=== PATIENT | male | born 2000 | race African-American/Black ===

== ENCOUNTER 2023-02-26 09:45 | Emergency (ER) | payer BC ==
[2023-02-26] MEDS ORDERED: MORPHINE 4 MG/ML SYR ONE (10:24)
[2023-02-26] MEDS ORDERED: ONDANSETRON 4 MG/2 ML VIAL ONE (10:25)
[2023-02-26] MEDS ORDERED: NA CHLORIDE 0.9% 500 ML ONE (10:26)
[2023-02-26] MEDS ORDERED: propofoL 200 MG/20 ML VIAL IV ONE (10:26)
--- NOTE | 2023-02-26 10:58 | RAD REPORT ---
EXAM DESCRIPTION: RAD - Shoulder Left 2 View - 02/26/2023 10:40 am CLINICAL HISTORY: Left shoulder pain FINDINGS: Anterior humeral dislocation with Hill-Sachs deformity
--- NOTE | 2023-02-26 11:51 | EDPHYS ---
Physician Documentation [facility] Name: Abner Franco Age: 23 yrs Sex: Male : 2000 Arrival Date: 02/26/2023 Time: 09:45 Bed 15 Private MD: ED Physician Colin Thibodeaux HPI: 02/26 10:15 This 23 yrs old Black Male presents to ER via Law Enforcement with complaints of rn shoulder dislocation. 10:15 The patient or guardian complains of decreased range of motion, pain. left shoulder. rn Onset: The symptoms/episode began/occurred just prior to arrival. Modifying factors: the symptoms are alleviated by nothing. The symptoms are aggravated by movement. Severity of symptoms: At their worst the symptoms were moderate, in the emergency department the symptoms are unchanged. The patient has experienced similar episodes in the past. Pt reports working out, thinks shoulder is dislocated, has happened 3 times before. No other injury. No direct trauma. No weakness/numbness. Historical: - Allergies: 09:50 No Known Allergies; ko1 - Immunization history:: Adult Immunizations unknown. - Social history:: Smoking status: Patient reports the use of cigarette tobacco products, denies chronic smoking, but will smoke occasionally. - Family history:: not pertinent. - Hospitalizations: : No recent hospitalization is reported. ROS: 10:15 Constitutional: Negative for fever, chills, and weight loss, MS/Extremity: + left rn shoulder deformity and pain Exam: 10:15 Constitutional: This is a well developed, well nourished patient who is awake, alert, rn and in no acute distress. MS/ Extremity: Pulses equal, no cyanosis. NV intact. + empty left glenoid with painful ROM, held in passive flexion. Vital Signs: 09:48 BP 125 / 72; Pulse 65; Resp 18; Temp 98; Pulse Ox 100% ; Weight 63.5 kg; Height 5 ft. 8 ko1 in. ; 10:00 BP 113 / 79; Pulse 69; Resp 16; Pulse Ox 99% ; ko1 11:00 BP 123 / 79; Pulse 70; Resp 18; Pulse Ox 99% ; ko1 11:15 BP 125 / 72; Pulse 63; Resp 16; Pulse Ox 100% on R/A; cm10 11:30 BP 123 / 74; Pulse 61; Resp 16; Pulse Ox 100% on R/A; cm10 11:45 BP 127 / 80; Pulse 68; Resp 16; Pulse Ox 96% on R/A; cm10 12:05 BP 129 / 77; Pulse 64; Resp 16; Pulse Ox 100% on R/A; cm10 09:48 Body Mass Index 21.29 (63.50 kg, 172.72 cm) ko1 Procedures: 11:17 Reduction: of the left shoulder, using traction, manipulation, Immobilized with rn shoulder immobilizer. Patient tolerated well. Post reduction film - reveals improved alignment. Moderate sedation: Pre-procedure assessment: the patient has been NPO 3 hour(s) prior to arrival, ASA physical classification: I - healthy, no underlying organic disease, Airway assessment: able to hyperextend neck, able to maintain airway, can open mouth without difficulty, Monitoring during procedure: phototypesetting equipment monitor, continuous pulse oximetry, nurse at bedside at all times, Medications employed: propofol, Post-procedure assessment: the patient is mildly sedated, Respiratory status: even and unlabored, a reversal agent was not used. MDM: 10:00 Patient medically screened. rn 11:50 Differential diagnosis: Anterior dislocation with fracture, Anterior dislocation rn without fracture. Data reviewed: vital signs, nurses notes, radiologic studies, plain films, and as a result, I will discharge patient. Counseling: I had a detailed discussion with the patient and/or guardian regarding: the historical points, exam findings, and any diagnostic results supporting the discharge/admit diagnosis, radiology results, the need for outpatient follow up, to return to the emergency department if symptoms worsen or persist or if there are any questions or concerns that arise at home. Response to treatment: the patient's symptoms have markedly improved after treatment, and as a result, I will discharge patient. Special discussion: I discussed with the patient/guardian in detail that at this point there is no indication for admission to the hospital. It is understood, however, that if the symptoms persist or worsen the patient needs to return immediately for re-evaluation. 02/26 10:12 Order name: XRAY Shoulder LEFT 2 view; Complete Time: 11:03 rn 02/26 11:17 Order name: XRAY Shoulder (1 View); Complete Time: 12:08 rn 02/26 10:12 Order name: IV Start; Complete Time: 10:47 rn 02/26 10:12 Order name: NPO; Complete Time: 10:13 rn 02/26 10:12 Order name: Moderate Sedation; Complete Time: 10:17 rn Administered Medications: 10:47 Drug: Ondansetron IVP 4 mg Route: IVP; Site: right antecubital; ko1 10:55 Drug: morphine IVP or IV 4 mg Route: IVP; Infused Over: 4 mins; Site: right antecubital;ko1 11:24 Drug: Propofol IVP 100 mg {Note: By Dr Thibodeaux.} Route: IVP; Site: right antecubital; ko1 Disposition Summary: 02/26/23 11:51 Discharge Ordered Location: Home rn Problem: new rn Symptoms: have improved rn Condition: Stable rn Diagnosis - Recurrent dislocation, left shoulder rn Followup: rn - With: Private Physician - When: As needed - Reason: Recheck today's complaints, Re-evaluation by your physician Discharge Instructions: - Discharge Summary Sheet rn - Shoulder Dislocation rn - Recurrent Shoulder Laxity and Instability rn Forms: - Medication Reconciliation Form rn - Thank You Letter rn - Antibiotic international logistics coordinator - Prescription Opioid Use rn - Patient Portal Instructions rn Signatures: Dispatcher [employer] EDColin Bacon MD MD rn Oliver, Kathy, RN RN ko1 Corrections: (The following items were deleted from the chart) 10:17 10:15 Constitutional: This is a well developed, well nourished patient who is awake, rn alert, and in no acute distress. MS/ Extremity: Pulses equal, no cyanosis. + empty left glenoid with painful ROM, held in passive flexion. rn
--- NOTE | 2023-02-26 11:51 | ER ---
Nurse's Notes [facility] Name: Abner Franco Age: 23 yrs Sex: Male : 2000 Arrival Date: 02/26/2023 Time: 09:45 Bed 15 Private MD: Diagnosis: Recurrent dislocation, left shoulder Presentation: 02/26 09:48 Chief complaint: Patient states: left shoulder popped out of place, it has happened ko1 before. No injury, just spontaneously popped out. Coronavirus screen: At this time, the client does not indicate any symptoms associated with coronavirus-19. Ebola Screen: No symptoms or risks identified at this time. Initial Sepsis Screen: Does the patient meet any 2 criteria? No. Patient's initial sepsis screen is negative. Does the patient have a suspected source of infection? No. Patient's initial sepsis screen is negative. Risk Assessment: Do you want to hurt yourself or someone else? Patient reports no desire to harm self or others. Onset of symptoms was February 26, 2023. 09:48 Method Of Arrival: Law Enforcement: [place] [employer] ko1 09:48 Acuity: MORENITA 3 ko1 Triage Assessment: 09:50 General: Appears in no apparent distress. uncomfortable, Behavior is calm, cooperative, ko1 appropriate for age. Pain: Complains of pain in anterior aspect of left shoulder and posterior aspect of left shoulder. Historical: - Allergies: 09:50 No Known Allergies; ko1 - Immunization history:: Adult Immunizations unknown. - Social history:: Smoking status: Patient reports the use of cigarette tobacco products, denies chronic smoking, but will smoke occasionally. - Family history:: not pertinent. - Hospitalizations: : No recent hospitalization is reported. Screenin:00 [facility] ED Fall Risk Assessment (Adult) History of falling in the last 3 months, ko1 including since admission No falls in past 3 months (0 pts) Confusion or Disorientation No (0 pts) Intoxicated or Sedated No (0 pts) Impaired Gait No (0 pts) Mobility Assist Device Used No (0 pt) Altered Elimination No (0 pt) Score/Fall Risk Level 0 - 2 = Low Risk Oriented to surroundings, Maintained a safe environment, Educated pt \T\ family on fall prevention, incl call for assistance when getting out of bed, Assessed \T\ reinforced patient's understanding of fall precautions, Provided non-skid footwear, Hourly rounding (assess needs \T\ fall precautionary measures) done, Used ambulatory aids as needed (educated on \T\ assisted with), Used gait belt as appropriate. Abuse screen: Denies threats or abuse. Denies injuries from another. Nutritional screening: No deficits noted. Tuberculosis screening: No symptoms or risk factors identified. Assessment: 10:00 General: Appears in no apparent distress. uncomfortable, Behavior is calm, cooperative, ko1 appropriate for age. Pain: Complains of pain in left shoulder and posterior aspect of left shoulder and anterior aspect of left shoulder. Neuro: No deficits noted. Cardiovascular: No deficits noted. Respiratory: No deficits noted. GI: No deficits noted. : No deficits noted. EENT: No deficits noted. Derm: No deficits noted. Musculoskeletal: Reports pain in posterior aspect of left shoulder and anterior aspect of left shoulder. 12:25 Reassessment: Patient is alert, oriented x 3, equal unlabored respirations, skin cm10 warm/dry/pink. Patient denies pain at this time. Patient states feeling better. Patient states symptoms have improved. Vital Signs: 09:48 BP 125 / 72; Pulse 65; Resp 18; Temp 98; Pulse Ox 100% ; Weight 63.5 kg; Height 5 ft. 8 ko1 in. ; 10:00 BP 113 / 79; Pulse 69; Resp 16; Pulse Ox 99% ; ko1 11:00 BP 123 / 79; Pulse 70; Resp 18; Pulse Ox 99% ; ko1 11:15 BP 125 / 72; Pulse 63; Resp 16; Pulse Ox 100% on R/A; cm10 11:30 BP 123 / 74; Pulse 61; Resp 16; Pulse Ox 100% on R/A; cm10 11:45 BP 127 / 80; Pulse 68; Resp 16; Pulse Ox 96% on R/A; cm10 12:05 BP 129 / 77; Pulse 64; Resp 16; Pulse Ox 100% on R/A; cm10 09:48 Body Mass Index 21.29 (63.50 kg, 172.72 cm) ko1 ED Course: 09:47 Patient arrived in ED. ko1 09:47 Belinda Oconnor, RN is Primary Nurse. ko1 09:50 Triage completed. ko1 09:50 Arm band placed on right wrist. Patient placed in an exam room, on a stretcher, on ko1 pulse oximetry. 10:00 Colin Thibodeaux MD is Attending Physician. rn 10:00 Patient has correct armband on for positive identification. Bed in low position. Call ko1 light in reach. Side rails up X 1. Provided Education on: NA. 10:00 Client placed on continuous cardiac and pulse oximetry monitoring. NIBP monitoring ko1 applied. panel monitor on. 10:42 XRAY Shoulder LEFT 2 view In Process Unspecified. EDMS 10:48 Inserted saline lock: 22 gauge in right upper arm, using aseptic technique. em1 11:56 XRAY Shoulder (1 View) In Process Unspecified. EDMS 12:24 Provided Education on: Conscious Sedation. cm10 12:24 Assist provider with reduction of left shoulder using manipulation, Set up for cm10 procedure. Performed by Colin Thibodeaux MD Immobilized with sling, Patient tolerated well. See conscious sedation paper chart. IV discontinued, intact, bleeding controlled, No redness/swelling at site. Pressure dressing applied. 12:26 Sling applied to left arm. cm10 Administered Medications: 10:47 Drug: Ondansetron IVP 4 mg Route: IVP; Site: right antecubital; ko1 10:55 Drug: morphine IVP or IV 4 mg Route: IVP; Infused Over: 4 mins; Site: right antecubital;ko1 11:24 Drug: Propofol IVP 100 mg {Note: By Dr Thibodeaux.} Route: IVP; Site: right antecubital; ko1 Medication: 12:25 VIS not applicable for this client. cm10 Outcome: 11:51 Discharge ordered by . rn 12:25 Discharged to home ambulatory, accompanied by guards cm10 12:25 Condition: good 12:25 Discharge instructions given to patient, Instructed on discharge instructions, follow up and referral plans. Demonstrated understanding of instructions, follow-up care. 12:26 Patient left the ED. cm10 Signatures: Dispatcher [employer] EDMS Colin Thibodeaux MD MD rn Martinez, Eric em1 Belinda Oconnor RN RN ko1 Martinez, Clarissa, RN RN cm10
--- NOTE | 2023-02-26 12:05 | RAD REPORT ---
EXAM DESCRIPTION: RAD - Shoulder 1 View - 02/26/2023 11:54 am CLINICAL HISTORY: Humeral dislocation FINDINGS: The previously described humeral dislocation has been reduced. A Hill-Sachs deformity is present
[2023-02-26 13:11] VITALS: TEMP 98
[2023-02-26 13:21] VITALS: BP 129/77; O2SAT 100
== END 2023-02-26 12:26 | disposition home or self-care (01) ==
LOC: ER 09:45
PROC: 0RSKXZZ Reposition Left Shoulder Joint, External Approach (ICD-10-PCS; principal; 2023-02-26)
DX: M24.412 Recurrent dislocation, left shoulder (principal); F17.210 Nicotine dependence, cigarettes, uncomplicated
CPT/HCPCS: 73020; 73030; 96375; 96374; 99285; 23655; J2704; J2405; J7040

== ENCOUNTER 2023-04-04 21:08 | Emergency (ER) | payer BC ==
[2023-04-04] MEDS ORDERED: MORPHINE 4 MG/ML SYR ONE (21:48)
[2023-04-04] MEDS ORDERED: ONDANSETRON 4 MG/2 ML VIAL ONE (21:49)
[2023-04-04] MEDS ORDERED: KETOROLAC 30 MG/ML INJ ONE (21:49)
[2023-04-04] MEDS ORDERED: NA CHLORIDE 0.9% 500 ML ONE (21:49)
[2023-04-04] MEDS ORDERED: ETOMIDATE 20 MG/10 ML VIAL IV ONE (21:49)
--- NOTE | 2023-04-04 22:11 | RAD REPORT ---
EXAM DESCRIPTION: RAD - Shoulder 1 View - 04/04/2023 9:37 pm CLINICAL HISTORY: Shoulder pain FINDINGS: Anterior humeral head dislocation Hill-Sachs deformity
--- NOTE | 2023-04-04 22:59 | ER ---
Nurse's Notes [facility] Name: Abner Franco Age: 23 yrs Sex: Male : 2000 Arrival Date: 04/04/2023 Time: 21:08 Bed 13 Private MD: Diagnosis: Recurrent dislocation, left shoulder;Recurrent left anterior shoulder dislocation;Left shoulder Hill-Sachs deformity Presentation: 04/04 21:16 Chief complaint: Patient states: I was working out and I think I dislocated my shoulder.1 21:16 Coronavirus screen: Vaccine status:. Ebola Screen: No symptoms or risks identified at [facility] this time. Initial Sepsis Screen: Does the patient meet any 2 criteria? No. Patient's initial sepsis screen is negative. Does the patient have a suspected source of infection? No. Patient's initial sepsis screen is negative. Risk Assessment: Do you want to hurt yourself or someone else? Patient reports no desire to harm self or others. Onset of symptoms was April 04, 2023. 21:16 Method Of Arrival: [employer]: [employer] 1 22:13 Acuity: MORENITA 3 ha1 Triage Assessment: 21:30 General: Appears uncomfortable, Behavior is calm, cooperative. Pain: Complains of pain ha1 in left shoulder Pain does not radiate. Pain currently is 10 out of 10 on a pain scale. Quality of pain is described as throbbing, Pain began. Historical: - Allergies: 22:15 No Known Allergies; ha1 - Immunization history:: Adult Immunizations unknown. - Social history:: Smoking status: unknown. - Family history:: not pertinent. Screenin:21 [facility] ED Fall Risk Assessment (Adult) History of falling in the last 3 months, ha1 including since admission No falls in past 3 months (0 pts) Confusion or Disorientation No (0 pts) Intoxicated or Sedated No (0 pts) Impaired Gait No (0 pts) Mobility Assist Device Used No (0 pt) Altered Elimination No (0 pt) Score/Fall Risk Level 0 - 2 = Low Risk Oriented to surroundings, Maintained a safe environment, Educated pt \T\ family on fall prevention, incl call for assistance when getting out of bed. 22:12 Abuse screen: Denies threats or abuse. Denies injuries from another. Nutritional ha1 screening: No deficits noted. Tuberculosis screening: No symptoms or risk factors identified. Assessment: 21:21 Reassessment: see triage assessment. ha1 22:20 Reassessment: Patient and/or family updated on plan of care and expected duration. Pain ha1 level reassessed. Patient is alert, oriented x 3, equal unlabored respirations, skin warm/dry/pink. 23:20 Reassessment: Patient and/or family updated on plan of care and expected duration. Pain ha1 level reassessed. Patient is alert, oriented x 3, equal unlabored respirations, skin warm/dry/pink. Patient denies pain at this time. Patient states feeling better. Patient states symptoms have improved. 23:24 Reassessment: see floating sheet for vitals signs during conscious sedation. ha1 Vital Signs: 21:20 BP 132 / 81; Pulse 75; Resp 18; Temp 98.8(O); Pulse Ox 100% on R/A; oe 22:15 BP 119 / 77; Pulse 68; Resp 17 S; Temp 98.1(O); Pulse Ox 100% on R/A; ha1 22:50 BP 114 / 77; Pulse 60; Resp 15 S; Pulse Ox 100% on R/A; ha1 23:00 BP 119 / 71; Pulse 71; Resp 18 S; Pulse Ox 98% on R/A; ha1 ED Course: 21:16 Patient arrived in ED. kl 21:16 Gregor Mcqueen MD is Attending Physician. sp4 21:16 Patient has correct armband on for positive identification. Bed in low position. Call ha1 light in reach. Side rails up X 1. 21:16 Arm band placed on. ha1 21:20 Sheila Pearce, SHELIA is Primary Nurse. ha1 21:39 Shoulder (1 View) XRAY In Process Unspecified. EDMS 21:50 Inserted saline lock: 20 gauge in right forearm, using aseptic technique. oe 22:13 Triage completed. ha1 22:57 Zurdo Foley MD is Referral Physician. sp4 22:58 Shoulder (1 View) XRAY In Process Unspecified. EDMS 23:28 Conscious sedation. IV discontinued, intact, bleeding controlled, No redness/swelling ha1 at site. Pressure dressing applied. 23:29 Provided Education on: follow ups. ha1 Administered Medications: 21:43 Drug: NS 0.9% IV 500 ml Route: IV; Rate: bolus; Site: right forearm; ha1 23:26 Follow up: Response: No adverse reaction; IV Status: Completed infusion; IV Intake: ha1 500ml 21:43 Drug: Ondansetron IVP 4 mg Route: IVP; Site: right forearm; ha1 22:15 Follow up: Response: No adverse reaction ha1 21:45 Drug: Ketorolac IVP 30 mg Route: IVP; Site: right forearm; ha1 22:15 Follow up: Response: No adverse reaction; Pain is decreased ha1 21:48 Drug: morphine IVP or IV 4 mg Route: IVP; Infused Over: 4 mins; Site: right forearm; ha1 22:15 Follow up: Response: No adverse reaction; Pain is decreased; RASS: Alert and Calm (0) ha1 22:21 Drug: Etomidate IVP 10 mg Route: IVP; Site: right forearm; ha1 22:50 Follow up: Response: No adverse reaction; RASS: Alert and Calm (0) ha1 22:23 Drug: Etomidate IVP 10 mg Route: IVP; Site: right forearm; ha1 22:50 Follow up: Response: No adverse reaction; Pain is decreased; RASS: Alert and Calm (0) ha1 Medication: 23:29 VIS not applicable for this client. ha1 Intake: 23:26 IV: 500ml; Total: 500ml. ha1 Outcome: 22:59 Discharge ordered by . sp4 23:29 Discharged to Law Enforcement ha1 23:29 Condition: stable 23:29 Discharge instructions given to patient, Instructed on discharge instructions, follow up and referral plans. medication usage, Demonstrated understanding of instructions, follow-up care, medications, Prescriptions given X 1. 23:30 Patient left the ED. ha1 Signatures: Dispatcher [employer] Eri Garcia RN RN kl Espinosa, Orlando oe Ayala, Heidy, RN RN ha1 Potepalov, Sergey, MD MD sp4 Corrections: (The following items were deleted from the chart) 23:27 22:50 Response: No adverse reaction; Pain is decreased; RASS: Alert and Calm (0) ha1 ha1
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
[2023-04-04 23:36] VITALS: TEMP 98.1
[2023-04-04 23:39] VITALS: BP 119/71; O2SAT 98
--- NOTE | 2023-04-05 13:03 | RAD REPORT ---
EXAM DESCRIPTION: XR Left Shoulder, 1 View CLINICAL HISTORY: After reduction; Pain TECHNIQUE: One view of the left shoulder. COMPARISON: XR Shoulder dated 04/04/2023 at 9: 33 PM; correlation is made with report only from stud y dated 02/26/2023 FINDINGS: Bones/joints: Interval reduction of the humeral head dislocation. Hill-Sachs fracture deformity mentioned on the previous report from February 2023. Soft tissues: Unremarkable. IMPRESSION: Interval reduction of the humeral head dislocation. Remote Hill-Sachs fracture deformi ty. Electronically signed by: Braulio Christiansen MD 04/04/2023 11:59 PM CDT Due to temporary technical issues with the PACS/Fluency reporting system, reports are being signed by the in house radiologists without review as a courtesy to insure prompt reporting. The interpreting radiologist is fully responsible for the content of the report.
== END 2023-04-04 23:30 | disposition home or self-care (01) ==
LOC: ER 21:08
PROC: 0RSKXZZ Reposition Left Shoulder Joint, External Approach (ICD-10-PCS; principal; 2023-04-04)
DX: M24.412 Recurrent dislocation, left shoulder (principal); S42.292A Other displaced fracture of upper end of left humerus, initial encounter for closed fracture
CPT/HCPCS: 96361; 73020 ×2; 96375; 96374; 99284; 23575; J2405; J7040